=== PATIENT | female | born 1935 | race Caucasian/White ===

== ENCOUNTER 2019-09-30 13:12 | Outpatient (CLI) | payer MEDICARE, SELFPAY ==
--- NOTE | ~2019-09-30 | XR_ITS ---
EXAMINATION: XR hand BI arthritis min 3V EXAM DATE: 09/30/2019 13:55 INDICATION: No known recent injury provided at this time. Pain of the left hand. Osteoarthritis. TECHNIQUE: Right hand frontal, lateral and oblique projections obtained and reviewed. Left hand fron nikkie, lateral and oblique projections obtained and reviewed. Catchers projection of both hands. There is no prior study for comparison. FINDINGS: Right hand: There is polyarticular primary osteoarthritis as follows: Severe first CMC, MCP, second a nd third DIP joints, otherwise mild to moderate interphalangeal. There are no bony erosions identifie d. There are no acute fractures or dislocations identified. There is no subcutaneous gas. The so ft tissue is unremarkable. There are no radiopaque foreign bodies. Left hand: There is polyarticular primary osteoarthritis as follows: Severe second and third DIP, mod erate fourth and fifth DIP, moderate first CMC, otherwise mild to moderate polyarticular interphalang eal. There are no bony erosions identified. There are no acute fractures or dislocations identified. There is no subcutaneous gas. The soft tissue is unremarkable. There are no radiopaque foreign lisa dies. IMPRESSION: Advanced particular osteoarthritis as above. Reviewed, dictated and finalized at location A. 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
--- NOTE | ~2019-09-30 | XR_ITS ---
EXAMINATION: XR foot LT standing 2V EXAM DATE: 09/30/2019 13:55 INDICATION: No known recent injury provided at this time. Pain of the left foot. TECHNIQUE: Frontal and lateral projections of the left foot. Images obtained standing. There is no prior study for comparison. Correlation was made with contralateral foot same date. FINDINGS: There is minimal polyarticular left foot primary osteoarthritis. There are no acute fractur es or dislocations identified. There is no subcutaneous gas. The soft tissue is unremarkable. The re are no radiopaque foreign bodies. There are no bony erosions identified. IMPRESSION: Minimal polyarticular left foot osteoarthritis. Reviewed, dictated and finalized at location A. D WASTE ENGINEER
--- NOTE | ~2019-09-30 | XR_ITS ---
EXAMINATION: XR foot RT standing 2V EXAM DATE: 09/30/2019 13:55 INDICATION: No known recent injury provided at this time. Pain of the right foot. Osteoarthritis. TECHNIQUE: Frontal and lateral projections of the right foot. Images obtained standing. There are n o prior studies for comparison. FINDINGS: There are no acute right foot fractures or dislocations identified. There is no subcutaneo us gas. The soft tissue is unremarkable. There are no radiopaque foreign bodies. There are no bon y erosions identified. There is minimal polyarticular primary osteoarthritis. IMPRESSION: Minimal polyarticular right foot osteoarthritis. Reviewed, dictated and finalized at location A. [employer]
[2019-09-30 16:07] LABS: Vitamin D 25 Hydroxy 76.4 ng/mL
[2019-10-03 11:11] LABS: Anti Cyclic Citrullinated Pept <16 Units (<20)
[2019-10-04 21:06] LABS: Anti Nuclear Antibody Pattern Nuclear, Speckled
== END 2019-09-30 13:13 | disposition home or self-care (01) ==
PROVIDERS: PCP Internal Medicine; Visit Provider Internal Medicine
DX: M80.08XA Age-related osteoporosis with current pathological fracture, vertebra(e), initial encounter for fracture (principal); M19.072 Primary osteoarthritis, left ankle and foot; M19.071 Primary osteoarthritis, right ankle and foot; M19.042 Primary osteoarthritis, left hand; M19.041 Primary osteoarthritis, right hand
CPT/HCPCS: 36415; 73130; 73620; 82306; 86038; 86039; 86200

== ENCOUNTER 2019-10-19 10:30 | Emergency (ER) | payer MEDICARE, SELFPAY ==
--- NOTE | ~2019-10-19 | XR_ITS ---
XR lumbar spine 2-3V DATE: 10/19/2019 12:32 INDICATION: Low back pain for 4 days, worsening. No recent trauma. History of prior spine fractures. TECHNIQUE: AP, lateral, coned lateral lumbosacral views COMPARISON: 04/24/2019 CT lumbar spine FINDINGS: Diffuse osteopenia There are numerous compression fracture deformities of the thoracic and lumbar spine, including T6, T 7, T8, T11, T12 and all 5 lumbar vertebral bodies. There is vertebroplasty at T6, T7, T8, T11 and L5. The compression fracture deformities of the lumbar spine appears stable since 04/24/2019 CT lumbar spi ne examination. The lumbar pedicles and included lower thoracic pedicles appear intact. No apparent bone destruction is noted. The sacrum joints are normal. Surgical clips overlie the right upper and right lower quadrants. There is extensive calcification of the abdominal aorta, iliac and femoral arteries. IMPRESSION: Multiple compression fracture 4 views of the thoracic and lumbar spine; lumbar compressio n fractures appear stable since 04/24/2019 Status post vertebroplasty at multiple thoracic vertebral bodies and at L5 Reviewed, dictated and finalized at location B. IMPRESSION: Multiple compression fracture 4 views of the thoracic and lumbar sp ine; lumbar compression fractures appear stable since 04/24/2019 Status post vertebroplasty at multiple thoracic vertebral bodies and at L5
[2019-10-19 12:02] VITALS: BP 136/55; PULSE 84; RESP 18; TEMP 36.8; O2SAT 96
--- NOTE | 2019-10-19 12:11 | ED.GENADULT ---
HPI - General Adult General Chief complaint: Back Pain/Injury Stated complaint: lower back pain Source: patient Mode of arrival: ambulatory Limitations: no limitations History of Present Illness HPI narrative: Patient is an 84-year-old female who presents complaining of lower back pain x3 to 4 days. Patient reports stepping on a rock and twisting 4 days ago, patient also reports coughing and lifting in the basement 2 days ago and pain increased. She reports pain is /. She reports taking [place] without relief. Patient has significant history of fracture vertebrae's and fusion, most recent 05/30. Patient's PCP is Dr. Zuniga, patient sees Dr. Burk pain management. She denies all urinary complaints. MD complaint: back pain Related Data Home Medications Medication Instructions Recorded Confirmed aspirin 81 mg tablet,delayed 81 mg PO DAILY 06/25/19 08/20/19 release wvhhgewg-kcbxfmj-mklu-lutein mcg PO 06/25/19 tramadol 50 mg tablet 50 mg PO BID PRN tablet 06/25/19 Allergies Allergy/AdvReac Type Severity Reaction Status Date / Time amoxicillin Allergy Unknown yeast Verified 09/28/19 12:55 infection Penicillins Allergy Unknown yeast Verified 09/28/19 12:55 infection Sulfa (Sulfonamide Allergy Unknown rash Verified 09/28/19 12:55 Antibiotics) sulfanilamide Allergy Unknown unknown Verified 09/28/19 12:55 codeine AdvReac Unknown Insomnia Verified 09/28/19 12:55 Review of Systems Review of Systems: Narrative: CONSTITUTIONAL: Denies fever, chills, or sweats. EYES: Denies visual changes, redness, or discharge. ENT: Denies rhinorrhea, congestion, sore throat, or otalgia. CARDIOVASCULAR: Denies chest pain, palpitations, or edema. RESPIRATORY: Denies cough or dyspnea. GASTROINTESTINAL: Denies abdominal pain, nausea, vomiting, or diarrhea. GENITOURINARY: Denies dysuria or hematuria. SKIN: Denies rash or itching. MUSCULOSKELETAL: Reports lower back pain. NEUROLOGIC: Denies headache, numbness, dizziness, or weakness. PSYCHIATRIC: Denies anxiety or depression. [facility] Past Medical History Medical History Anemia Atrial fibrillation CKD (chronic kidney disease) stage 3, GFR 30-59 ml/min COPD (chronic obstructive pulmonary disease) Fracture of vertebra due to osteoporosis Generalized osteoarthritis of multiple sites Hyperlipidemia Hypertension Inflammatory arthritis Insomnia Nicotine addiction Osteoporosis Other intervertebral disc degeneration, lumbar region Rheumatoid arthritis Thyroid nodule Vitamin D deficiency Surgical History Surgical History H/O cataract extraction History of appendectomy History of cholecystectomy Family History Family History Father Family history of lymphoma Family history of malignant neoplasm of bone Mother Family history of coronary artery disease Family history of congestive heart failure Sibling Diabetes mellitus Other Carcinoma of colon Social History Social History Smoking status: Current every day smoker Second hand tobacco smoke exposure: Yes Smoking end date: 09/12/15 Alcohol intake: current Gender identity (if verbalized by the patient): Female Exam Narrative: Exam Narrative: GENERAL: Well-appearing, well-nourished, and in no acute distress. HEAD: Normocephalic, atraumatic. EYES: EOMI. No redness or drainage. Conjunctiva are normal. ENT: Mucous membranes pink and moist. CHEST: No respiratory distress. Clear to auscultation. HEART: Regular rate and rhythm. No murmur appreciated. Normal peripheral pulses. MUSCULOSKELETAL: Left lumbar paraspinal tenderness with palpation EXTREMITIES: Normal range of motion. No edema. SKIN: Warm, dry, no rash. NEURO: No focal deficits. Alert and oriented x3. Gait steady. PSYCH
== END 2019-10-19 13:05 | disposition home or self-care (01) ==
PROVIDERS: Emergency Provider Nurse Practitioner; PCP Family Medicine
DX: M54.5 Low back pain (principal); F17.200 Nicotine dependence, unspecified, uncomplicated; I48.91 Unspecified atrial fibrillation; I12.9 Hypertensive chronic kidney disease with stage 1 through stage 4 chronic kidney disease, or unspecified chronic kidney disease; N18.3 Chronic kidney disease, stage 3 (moderate); J44.9 Chronic obstructive pulmonary disease, unspecified; M19.90 Unspecified osteoarthritis, unspecified site; E78.5 Hyperlipidemia, unspecified; M81.0 Age-related osteoporosis without current pathological fracture; M06.9 Rheumatoid arthritis, unspecified; Z98.49 Cataract extraction status, unspecified eye
CPT/HCPCS: 72100; 99213; G0463

== ENCOUNTER 2019-10-21 10:19 | Outpatient (CLI) | payer MEDICARE, SELFPAY ==
--- NOTE | ~2019-10-21 | MR_ITS ---
EXAMINATION: MR lumbar spine wo con EXAM DATE: 10/21/2019 11:26 INDICATION: Low back pain. TECHNIQUE: Multi-sequential, multiplanar MR images of the lumbar spine were obtained without contrast . Sagittal T1, T2, T2 fat saturation images. Axial T2 weighted images. Correlation is made to x-ray from 10/20/2019. FINDINGS: There is L4 mild to moderate compression fracture at the superior endplate with mild edema, could be subacute. Mild chronic loss of the L1-L3 vertebral body heights. There is moderate chronic L5 compression fracture, and moderate to severe chronic T11 compression fracture both of which have b een treated with methylmethacrylate. There is 4 mm anterolisthesis L5 on S1. The vertebral bodies are otherwise aligned. The conus medullaris terminates at the L1/2 level and has normal signal intensity and morphology. Renal lesions, imaged portions consistent with cysts. Level by level evaluation: T12-L1: Disc does not extend beyond the endplate margin. Facet arthropathy: None. Neural foraminal stenosis: No stenosis. Central canal stenosis: No stenosis. L1-L2: There is a mild diffuse disc bulge. Facet arthropathy: Mild. Neural foraminal stenosis: No stenosis. Central canal stenosis: No stenosis. L2-L3: There is a moderate diffuse disc bulge. Facet arthropathy: Mild to moderate. Neural foraminal stenosis: Mild right. Central canal stenosis: Mild to moderate. L3-L4: There is a mild diffuse disc bulge. Facet arthropathy: Mild. Neural foraminal stenosis: No stenosis. Central canal stenosis: Mild. L4-L5: There is a mild diffuse disc bulge. Facet arthropathy: Mild to moderate. Neural foraminal stenosis: Mild bilateral. Central canal stenosis: Mild. L5-S1: There is a mild to moderate diffuse disc bulge. Facet arthropathy: Moderate to severe. Neural foraminal stenosis: Mild to moderate bilateral. Central canal stenosis: Mild. IMPRESSION: 1. L4 mild to moderate compression fracture with some edema, could be subacute. 2. L5-S1 advanced facet arthropathy. 3. Otherwise chronic compression fractures and mild to moderate spondylosis. Reviewed, dictated and finalized at location B. IMPRESSION: 1. L4 mild to moderate compression fracture with some edema, could be subacute . 2. L5-S1 advanced facet arthropathy. 3. Otherwise chronic compression fractures and mild to moderate spondylosis.
== END 2019-10-21 10:20 | disposition home or self-care (01) ==
PROVIDERS: PCP Family Medicine; Visit Provider Nurse Practitioner
DX: M47.896 Other spondylosis, lumbar region (principal)
CPT/HCPCS: 72148

== ENCOUNTER 2019-11-28 15:06 | Emergency (ER) | payer MEDICARE, SELFPAY ==
--- NOTE | ~2019-11-28 | XR_ITS ---
EXAMINATION: XR wrist RT min 3V DATE: 11/28/2019 15:30 INDICATION: Generalized right wrist pain and bruising post fall one day prior TECHNIQUE: Posteroanterior, ulnar deviation, oblique, and lateral views of the right wrist were obtai mariel. COMPARISON: 09/30/2019 FINDINGS: Mild palmar impaction of a minimally displaced intra-articular fracture of the distal right radius. T here is 1 mm step-off along the articular surface. No other fractures identified. Polyarticular osteo arthritis, severe at the distal radioulnar, first carpal metacarpal joints and second and third dista l interphalangeal joints and mild to moderate at multiple metacarpophalangeal and additional interpha langeal joints. Prominent soft tissue swelling about the right wrist. IMPRESSION: 1. Mildly displaced intra-articular fracture of the distal left radius. 2. Moderate to severe polyarticular osteoarthritis at the left hand and wrist. Reviewed, dictated and finalized at location A.
[2019-11-28 15:08] VITALS: BP 124/66; PULSE 90; RESP 20; TEMP 36.5; O2SAT 97
--- NOTE | 2019-11-28 15:32 | ED.UPPEXIN ---
HPI - Extremity Injury (Upper) General Chief Complaint: Extremity Injury, Upper Stated Complaint: R arm pain/deformity Time Seen by Provider: 11/28/19 15:23 History of Present Illness HPI narrative: Patient presents with her rjpmbzuu-xq-lfi for sore right wrist. She fell over a stepstool on the side of her bed yesterday. She did not lose consciousness, and complains of mild right upper leg pain,also. He has a history of osteoporosis and recently had to thoracic lumbar compression fractures repaired. She says she quit smoking recently, and took Naprosyn and Tylenol for the wrist pain. She is able to use her right hand but resists any motion of the wrist. There is significant bruising and some swelling there. MD complaint: injury to: right and wrist Onset (ago): day(s) Other Extremity Injury: Right: wrist Handedness: right Place: home Severity: moderate Relieving factors: immobilization Exacerbating factors: movement of extremity Context: fall Treatments prior to arrival: NSAIDS and other (sling) Related Data Home Medications Medication Instructions Recorded Confirmed aspirin 81 mg tablet,delayed 81 mg PO DAILY 06/25/19 10/21/19 release nlwehges-bwsxvhc-vhaz-lutein 1 mcg PO 06/25/19 10/21/19 albuterol sulfate 2.5 mg INHALATION Q4-6H PRN 10/21/19 10/21/19 diltiazem HCl 300 mg 300 mg PO DAILY 10/21/19 10/21/19 capsule,extended release 24 hr naproxen 500 mg tablet 500 mg PO BID 10/21/19 10/21/19 Allergies Allergy/AdvReac Type Severity Reaction Status Date / Time amoxicillin Allergy Unknown yeast Verified 11/16/19 15:30 infection Penicillins Allergy Unknown yeast Verified 11/16/19 15:30 infection Sulfa (Sulfonamide Allergy Unknown rash Verified 11/16/19 15:30 Antibiotics) sulfanilamide Allergy Unknown unknown Verified 11/16/19 15:30 codeine AdvReac Unknown Insomnia Verified 11/16/19 15:30 Review of Systems Review of Systems: Narrative: CONSTITUTIONAL: Denies fever, chills, or sweats. EYES: Denies visual changes, redness, or discharge. ENT: Denies rhinorrhea, congestion, sore throat, or otalgia. CARDIOVASCULAR: Denies chest pain, palpitations, or edema. RESPIRATORY: Denies cough or dyspnea. GASTROINTESTINAL: Denies abdominal pain, nausea, vomiting, or diarrhea. GENITOURINARY: Denies dysuria or hematuria. SKIN: Denies rash or itching. MUSCULOSKELETAL: Denies back pain NEUROLOGIC: Denies headache, numbness, or weakness.She can walk with her walker. PSYCHIATRIC: Denies anxiety or depression. PMFSH Past Medical History Medical History Anemia Atrial fibrillation CKD (chronic kidney disease) stage 3, GFR 30-59 ml/min COPD (chronic obstructive pulmonary disease) Fracture of vertebra due to osteoporosis Generalized osteoarthritis of multiple sites Hyperlipidemia Hypertension Inflammatory arthritis Insomnia Nicotine addiction Osteoporosis Other intervertebral disc degeneration, lumbar region Rheumatoid arthritis Thyroid nodule Vitamin D deficiency Surgical History Surgical History H/O cataract extraction History of appendectomy History of cholecystectomy Family History Family History Father Family history of lymphoma Family history of malignant neoplasm of bone Mother Family history of coronary artery disease Family history of congestive heart failure Sibling Diabetes mellitus Other Carcinoma of colon Social History Social History Smoking status: Current every day smoker Second hand tobacco smoke exposure: Yes Smoking end date: 09/12/15 Alcohol intake: current Gender identity (if verbalized by the patient): Female Exam Narrative: Exam Narrative: GENERAL: Well-appearing, well-nourished, and in no acute distress. HEAD: Normocephalic, atraumatic. EYES: PERRLA and
== END 2019-11-28 16:29 | disposition home or self-care (01) ==
PROVIDERS: Emergency Provider Emergency Medicine; PCP Family Medicine
DX: S52.571A Other intraarticular fracture of lower end of right radius, initial encounter for closed fracture (principal); M19.041 Primary osteoarthritis, right hand; M19.031 Primary osteoarthritis, right wrist; W18.09XA Striking against other object with subsequent fall, initial encounter; Z79.82 Long term (current) use of aspirin; Z86.2 Personal history of diseases of the blood and blood-forming organs and certain disorders involving the immune mechanism; I48.91 Unspecified atrial fibrillation; I12.9 Hypertensive chronic kidney disease with stage 1 through stage 4 chronic kidney disease, or unspecified chronic kidney disease; N18.3 Chronic kidney disease, stage 3 (moderate); J44.9 Chronic obstructive pulmonary disease, unspecified; E78.5 Hyperlipidemia, unspecified; M81.0 Age-related osteoporosis without current pathological fracture; M06.9 Rheumatoid arthritis, unspecified; E04.1 Nontoxic single thyroid nodule; E55.9 Vitamin D deficiency, unspecified
CPT/HCPCS: 29125; 73110; 99284; A4565; A9270

== ENCOUNTER 2019-12-04 10:40 | Outpatient (CLI) | payer MEDICARE, SELFPAY ==
--- NOTE | ~2019-12-04 | XR_ITS ---
EXAMINATION: XR hip RT min 2V DATE: 12/04/2019 11:00 INDICATION: Right hip pain TECHNIQUE: Two views of the right hip were obtained. COMPARISON: None. FINDINGS: Bone alignment is normal. There is no fracture. Moderate osteoarthritis is noted. There is vertebroplasty change at L5. Calcified atherosclerosis is noted. IMPRESSION: 1. . No acute osseous abnormality. Reviewed, dictated and finalized at location A.
--- NOTE | ~2019-12-04 | XR_ITS ---
XR lumbar spine 2-3V DATE: 12/04/2019 11:00 INDICATION: Low back pain TECHNIQUE: AP, lateral, coned lateral lumbosacral views COMPARISON: 10/29/2019 lumbar spine FINDINGS: Since 10/28/2021 there is burst fracture deformity of L4 with increased cupping of the super ior vertebral endplate and loss of height of this vertebra. Chronic minimal anterior wedge compression fracture deformity of L1 and L2 is demonstrated to better advantage on 10/29/2019 examination. Again noted is vertebroplasty at L5 and T11. The sacroiliac joints appear normal. Diffuse osteopenia. Status post cholecystectomy. Surgical clips overlie the right lower quadrant. Extensive calcification abdominal aorta and iliac arteries; no apparent abdominal aortic aneurysm. IMPRESSION: L4 burst fracture since 10/29/2019 Reviewed, dictated and finalized at location A.
== END 2019-12-04 10:41 | disposition home or self-care (01) ==
PROVIDERS: PCP Family Medicine; Visit Provider Nurse Practitioner
DX: M25.559 Pain in unspecified hip (principal); S32.041A Stable burst fracture of fourth lumbar vertebra, initial encounter for closed fracture; X58.XXXA Exposure to other specified factors, initial encounter
CPT/HCPCS: 72100; 73502

== ENCOUNTER 2020-01-11 11:12 | Outpatient (CLI) | payer MEDICARE, SELFPAY ==
--- NOTE | ~2020-01-11 | XR_ITS ---
XR lumbar spine 2-3V 01/11/2020 12:10 Indication: Age-related osteoporosis with pathologic fractures. Procedure: 3 views of the lumbar spine Comparison: 12/04/2019 Findings: There are multiple compression deformities which are chronic including T11, L3, L4 and L5. There are vertebroplasty changes associated with compression fractures at 11, T12, L1, L4 and L5. The re is grade 1 spondylolisthesis at L5-S1. There is disc narrowing at L3-4 and L5-S1. Generalized oste openia. There are facet degenerative changes at L5-S1 and to a lesser degree L4-5. Impression: 1: Multiple subacute/chronic compression fractures with vertebroplasty changes including T11, T12, L1 , L4 and L5. Mild chronic superior endplate compression deformity of L3. 2: Moderate lumbar spondylosis. Reviewed, dictated and finalized at location A. Impression: 1: Multiple subacute/chronic compression fractures with vertebroplasty changes including T11, T12, L1, L4 and L5. Mild chronic superior endplate compression d eformity of L3. 2: Moderate lumbar spondylosis.
--- NOTE | ~2020-01-11 | XR_ITS ---
XR thoracic spine 3V 01/11/2020 12:10 Indication: Age-related osteoporosis with pathologic fractures mid-lower back Procedure: 3 views of the lumbar spine Comparison: 07/29/2008 Findings: There are chronic compression fractures of T3, T5, T6, T7, T8, T11, T12 and L1 with vertebr oplasty changes. There is mild scoliosis. Generalized osteopenia. No significant paraspinal soft tiss ue abnormality. Surrounding osseous structures within normal limits. There are cholecystectomy clips. Impression: 1: Multiple chronic thoracic and lumbar compression fractures with vertebroplasty changes. No acute a bnormality identified. 2: Osteopenia. Reviewed, dictated and finalized at location A. Impression: 1: Multiple chronic thoracic and lumbar compression fractures with vertebroplas ty changes. No acute abnormality identified. 2: Osteopenia.
[2020-01-11 11:54] LABS: Hematocrit 44.1 % (37.0-47.0); Hemoglobin 13.9 g/dL (12.0-15.0); Mean Corpuscular HGB Conc 31.5 g/dl (32-36); Mean Corpuscular Volume 85.6 fl (80-100); Mean Platelet Volume 10.6 fl (7.4-10.4); Platelet Count Result 231 k/mm3 (150-375); Red Blood Count 5.15 M/mm3 (4.2-5.4); Red Cell Distribution Width 14.7 % (11.5-14.5); White Blood Count 10.4 K/mm3 (4.5-10.0)
[2020-01-11 12:13] LABS: Alanine Aminotransferase 18 U/L (4-35); Albumin Level 4.3 g/dL (3.5-5.1); Alkaline Phosphatase 94 U/L (38-126); Aspartate Amino Transferase 24 U/L (14-36); Bilirubin,Total 0.3 mg/dL (0.2-1.3); Blood Urea Nitrogen 21 mg/dL (7-17); Calcium 9.5 mg/dL (8.4-10.2); Carbon Dioxide 32 mmol/L (22-30); Chloride 99 mmol/L (98-107); Cholesterol 125 mg/dL (0-200); Estimated Glomerular Filt Rate 43; Glucose 92 mg/dL (65-105); HDL Direct 30 mg/dL; Potassium 4.4 mmol/L (3.4-5.0); Sodium 138 mmol/L (137-145); Triglycerides 195 mg/dL (<150)
[2020-01-11 12:24] LABS: LDL Cholesterol Direct 62 mg/dL
[2020-01-11 13:08] LABS: Hemoglobin A1C 5.5 % (<5.7)
[2020-01-14 11:35] LABS: Vitamin D 1,25 (OH)2 Total 33 pg/mL (18-72); Vitamin D2 1,25 (OH)2 <8 pg/mL; Vitamin D3 1,25 (OH)2 33 pg/mL
== END 2020-01-11 11:13 | disposition home or self-care (01) ==
PROVIDERS: PCP Family Medicine; Visit Provider Nurse Practitioner Family
DX: I10 Essential (primary) hypertension (principal); E55.9 Vitamin D deficiency, unspecified; R73.01 Impaired fasting glucose; E78.5 Hyperlipidemia, unspecified; M80.08XA Age-related osteoporosis with current pathological fracture, vertebra(e), initial encounter for fracture; J84.9 Interstitial pulmonary disease, unspecified; M85.88 Other specified disorders of bone density and structure, other site; M47.896 Other spondylosis, lumbar region
CPT/HCPCS: 36415; 72072; 72100; 80053; 80061; 82652; 83036; 85027

== ENCOUNTER 2020-06-14 09:26 | Outpatient (CLI) | payer MEDICARE, SELFPAY ==
--- NOTE | ~2020-06-14 | MR_ITS ---
EXAMINATION: MR lumbar spine wo con DATE: 06/14/2020 10:39 INDICATION: Low back pain. Osteoarthritis. TECHNIQUE: Magnetic resonance imaging (MRI) of the lumbar spine was performed without intravenous con trast. Sequences included sagittal T2-weighted FSE, sagittal T2-weighted FS FSE, sagittal T1-weighted FSE, and axial T2-weighted FSE. COMPARISON: Lumbar spine MRI 10/21/2019 FINDINGS: There are cysts in the kidneys measuring up to at least 5.5 cm on the left. S1 is a transit ional segment. There are chronic compression fractures and burst fractures at many levels. There are changes of vertebroplasty at all levels from T11 to L5. There is 3 mm retropulsion of bone into centr al spinal canal at T11, T12, and L4. The intervertebral disc heights are normal. The distal spinal co rd signal intensity is normal. The conus medullaris is at L2. The following disc levels are specifica lly discussed: T11-T12: The disc is bulging. There is moderate bilateral facet joint osteoarthritis. There is mild b ilateral neural foraminal stenosis. There is mild central canal stenosis. T12-L1: The disc does not extend beyond the endplate margin. There is moderate bilateral facet joint osteoarthritis. There is no neural foraminal stenosis. There is no central canal stenosis. L1-L2: The disc is bulging. There is mild bilateral facet joint osteoarthritis. There is no neural fo raminal stenosis. There is mild central canal stenosis. L2-L3: The disc is bulging and has an annular fissure. There is mild bilateral facet joint osteoarthr itis. There is mild bilateral neural foraminal stenosis. There is mild central canal stenosis. L3-L4: The disc is bulging. There is moderate right and mild left facet joint osteoarthritis. There i s mild neural foraminal stenosis. There is mild central canal stenosis. L4-L5: The disc is bulging. There is moderate bilateral facet joint osteoarthritis. There is hypertro phy of the ligamentum flavum. There is mild bilateral neural foraminal stenosis. There is mild centra l canal stenosis. L5-S1: The disc does not extend beyond the endplate margin. There is severe bilateral facet joint ost eoarthritis. There is mild bilateral neural foraminal stenosis. There is no central canal stenosis. IMPRESSION: 1. Mild lumbar spondylosis, stable from 10/21/2019. Reviewed, dictated and finalized at location A. E PATHOLOGIST
== END 2020-06-14 09:27 | disposition home or self-care (01) ==
DX: M19.90 Unspecified osteoarthritis, unspecified site (principal); M48.061 Spinal stenosis, lumbar region without neurogenic claudication; M47.816 Spondylosis without myelopathy or radiculopathy, lumbar region
CPT/HCPCS: 72148

== ENCOUNTER 2020-07-09 10:38 | Outpatient (CLI) | payer MEDICARE, SELFPAY ==
--- NOTE | ~2020-07-09 | XR_ITS ---
XR chest 2V DATE: 07/09/2020 11:22 INDICATION: Panlobular emphysema TECHNIQUE: PA and lateral chest COMPARISON: 08/20/2021 view chest FINDINGS: There is interval vertebroplasty at multiple thoracic and lumbar vertebral bodies since 08/12. There is prominent diffuse osteopenia. There are multiple compression fracture deformities of the thoracic and lumbar spine. Borderline heart size. Aortic calcification. No pulmonary infiltrate or consolidation is evident. No pleural effusion or pulmonary vascular conges tion or pneumothorax. Surgical clips, right upper quadrant, likely due to cholecystectomy. IMPRESSION: Interval vertebroplasty at multiple thoracic and lumbar levels Diffuse osteopenia, multiple compression fracture deformities of the thoracic and lumbar spine Borderline heart size, aortic atherosclerosis No active pulmonary disease or other significant change since 08/30/2019 Reviewed, dictated and finalized at location A. ER SALVAGER IMPRESSION: Interval vertebroplasty at multiple thoracic and lumbar levels Diffuse osteopenia, multiple compression fracture deformities of the thoracic a nd lumbar spine Borderline heart size, aortic atherosclerosis No active pulmonary disease or other significant change since 08/30/2019
[2020-07-09 11:31] LABS: Basophils Absolute Auto 0.1 K/mm3 (0.0-0.1); Basophils Percent Auto 0.5 % (0.2-1.2); Eosinophils Absolute Auto 0.4 K/mm3 (0-0.3); Eosinophils Percent Auto 3.8 % (0-4.4); Hematocrit 42.4 % (37.0-47.0); Hemoglobin 14.3 g/dL (12.0-15.0); Immature Granulocyte Absolute 0.05 K/mm3 (0.00-0.031); Immature Granulocyte Percent A 0.5 % (0-0.5); Lymphocytes Absolute Auto 2.73 K/mm3 (0.9-3.2); Mean Corpuscular HGB Conc 33.7 g/dl (32-36); Mean Corpuscular Hemoglobin 28.1 pg (26-34); Mean Corpuscular Volume 83.3 fl (80-100); Mean Platelet Volume 9.8 fl (7.4-10.4); Monocytes Absolute Auto 1.6 K/mm3 (0.1-0.6); Monocytes Percent Auto 14.8 % (2.6-8.5); Neutrophils Absolute Auto 6.1 K/mm3 (1.3-6.7); Neutrophils Percent Auto 55.4 % (45.5-73.1); Platelet Count Result 243 k/mm3 (150-375); Red Blood Count 5.09 M/mm3 (4.2-5.4); Red Cell Distribution Width 14.9 % (11.5-14.5); White Blood Count 10.9 K/mm3 (4.5-10.0)
[2020-07-09 11:45] LABS: Alanine Aminotransferase 16 U/L (4-35); Alkaline Phosphatase 70 U/L (38-126); Anion Gap 9 mmol/L (8-16); Aspartate Amino Transferase 23 U/L (14-36); Bilirubin,Total 0.4 mg/dL (0.2-1.3); Blood Urea Nitrogen 12 mg/dL (7-17); Calcium 9.2 mg/dL (8.4-10.2); Carbon Dioxide 26 mmol/L (22-30); Chloride 106 mmol/L (98-107); Cholesterol 136 mg/dL (0-200); Estimated Glomerular Filt Rate 60; Glucose 101 mg/dL (65-105); HDL Direct 33 mg/dL; Potassium 3.8 mmol/L (3.4-5.0); Sodium 141 mmol/L (137-145); Triglycerides 223 mg/dL (<150)
[2020-07-09 11:56] LABS: LDL Cholesterol Direct 63 mg/dL
[2020-07-12 06:22] LABS: Vitamin D 1,25 (OH)2 Total 32 pg/mL (18-72); Vitamin D2 1,25 (OH)2 <8 pg/mL; Vitamin D3 1,25 (OH)2 32 pg/mL
== END 2020-07-09 10:39 | disposition home or self-care (01) ==
DX: M48.55XA Collapsed vertebra, not elsewhere classified, thoracolumbar region, initial encounter for fracture (principal); J43.1 Panlobular emphysema; I10 Essential (primary) hypertension; E55.9 Vitamin D deficiency, unspecified; M47.815 Spondylosis without myelopathy or radiculopathy, thoracolumbar region; I70.0 Atherosclerosis of aorta
CPT/HCPCS: 36415; 71046; 80053; 80061; 82652; 85025

== ENCOUNTER 2020-07-26 08:56 | Outpatient (CLI) | payer MEDICARE, SELFPAY ==
--- NOTE | 2020-08-04 12:48 | WPDPFTINT ---
PFT Interpretation PFT Interpretation: DOS: REQUESTING: Don Sharif MD REASON FOR TESTING: COPD] PULMONARY FUNCTION TESTS Results are reproducible. Spirometry: Mild decreased in FEV1, 0.91 L. FVC is mildly reduced. Normal FEV1% indicating no obvious airflow obstruction. FEF 25-75 is 49% reduced and suggestive of small airways pattern. There is no change with bronchodilator. Lung volumes: TLC is 90% normal. RV is 127% consistent with air trapping. RV/TLC is increased at 62 suggestive of significant air trapping. Airway resistance elevated at 250%. Diffusion: DLCO is 47%, moderately decreased. Flow volume loop: Mild scooping of the expiratory limb IMPRESSION: Mild ventilatory impairment with FEV1 0.91 L, small airways pattern; moderate air trapping and moderate diffusion impairment. obstructive pattern is is inferred by the moderate air trapping and increased airway resistance. Lack of response to bronchodilator does not preclude use if clinically indicated. Nitza Groves MD
--- NOTE | 2020-08-04 12:56 | WPDSIXMINUTE ---
Six Minute Walk Six Minute Walk: DOS: 07/26/2020 REQUESTING: Don Salas MD REASON FOR TESTING: COPD SIX MINUTES WALK This test was conducted per ATS guidelines. The patient walked while breathing room air. Initial saturation 93%. Initial pulse was 103. The patient walked for 6 minutes without stopping. Distance walked was 700 ft/ 213 m. PF lowest saturation was transiently 88%. Maximum heart rate 115. IMPRESSION: This study showed transient desaturation 88% which did not require supplemental oxygen. Recovery saturation was 94%. Distance walked is adequate for age. Patient had resting tachycardia at 103 at the beginning of the test and was sustained throughout testing and recovery.
== END 2020-07-26 08:57 | disposition home or self-care (01) ==
PROVIDERS: Visit Provider Internal Medicine Critical Care Medicine
DX: J44.9 Chronic obstructive pulmonary disease, unspecified (principal)
CPT/HCPCS: 94060; 94618; 94726; 94729

== ENCOUNTER 2020-08-22 00:47 | Outpatient (CLI) | payer MEDICARE, SELFPAY ==
[2020-08-22 19:06] LABS: SARS-CoV-2 RNA PCR Negative
== END 2020-08-22 00:48 | disposition home or self-care (01) ==
LOC: ANHCOVIDDT 00:48
PROVIDERS: Visit Provider Internal Medicine Critical Care Medicine
DX: Z01.812 Encounter for preprocedural laboratory examination (principal); Z20.822 Contact with and (suspected) exposure to COVID-19
CPT/HCPCS: C9803; U0003

== ENCOUNTER 2020-08-24 08:45 | Outpatient (CLI) | payer MEDICARE, SELFPAY ==
--- NOTE | 2020-09-30 12:40 | WPDSLEEPSTUD ---
Sleep Study Date of Study: 08/24/20 Ordering Provider: Nitza Groves MD Interpreting Physician: Nitza Groves MD Sleep Study Type: CPAP Titration Height: 1.47 m Weight: 63.503 kg Body Mass Index: 29.2 Neck Circumference: 35.56 cm [place]: 5 Reason for Sleep Study VIVIANE on a prior split night study February 10, 2016 showing AHI of 7.9 with desaturation to 78% with an optimal pressure 7 cm; now she is having a poor response to CPAP, in bed 10 hours a night, daily naps despite good compliance with an AHI of 0.2 on 8 cm of water pressure; trial of 9 cm on her own CPAP without improvement in symptoms Sleep History Geno Castillo is an 85 year old female with VIVIANE diagnosed in 2016 who is complaint with CPAP. She has had worsening quality of sleep despite excellent compliance with treatment. She is wearing CPAP at 8 cm with an AHI of 0.2 average usage 10 hours 48 minutes. She wakes during the night, still leaves CPAP on while she is resting in bed. She does not know if she snores or not. She does not awaken at night with heartburn, belching or coughing. She occasionally has trouble sleeping with a cold. She rarely wakes up gasping for breath at night. She frequently has breathing problems at night reported to her by others. She rarely sweats excessively at night. She does not notice her heart pounding or beating irregularly night. She frequently falls asleep during the day, never while driving and not involuntarily. She does not fall asleep while exerting physical effort. She does not have loss of muscle tone with strong emotion. She does not have daytime difficulties due to excessive sleepiness, she is retired. She does not feel paralyzed on waking or falling asleep. She rarely has vivid dreamlike scenes upon awakening or falling asleep. She has never free to go to sleep. She rarely has nightmares. She rarely remembers her dreams. She really has racing thoughts. She never feels sad depressed or anxious. She frequently has muscular tension. She does not notice parts of her body jerking, does not kick at night, does not have crawling and aching feelings in her legs and does not have any kind of leg pain at night. She does not have morning jaw pain. She does not grind her teeth during sleep. She frequently has bothered by pain in her arms and back during the day. She rarely is awakened by pain at night. She does not wake up feeling stiff in the morning. She rarely wakes up with sore achy muscles. She occasionally wakes up with pain in the spine. She has fatigue and takes sedatives. Normal bedtime is midnight falling asleep within 10-15 minutes, waking up 1-2 times during the night to urinate and sometimes take a Tylenol. She wakes in the morning at 8:00 a.m.. She estimates 8 hours of sleep at night. She sometimes takes naps. A short nap can be refreshing. She is usually drowsy in the morning for 2 hours. She feels better in the afternoon or evening compared to the morning. Habits: Tobacco 1 pack a day. Caffeine 2 cokes per day. No alcohol or recreational drugs. [facility] Past Medical History Medical History (Updated 09/30/20 @ 14:08 by Nitza Groves MD) Anemia Atrial fibrillation Breast cancer Right breast, surgery 2005, radiation with radiation fibrosis CKD (chronic kidney disease) stage 3, GFR 30-59 ml/min COPD (chronic obstructive pulmonary disease) Fracture of vertebra due to osteoporosis Generalized osteoarthritis of multiple sites Hyperlipidemia Hypertension Inflammatory arthritis Insomnia Nicotine addiction VIVIANE (obstructive sleep apnea) Osteoporosis Other intervertebral disc degeneration, lumbar region Pain of ulnar side of wrist Rheumatoid arthritis Thyroid nodule Vitamin D deficiency Surgical History Surgical History H/O breast surgery H/O cataract extraction History of appendectomy History of cholecystectomy Family History Family History (Reviewed
[2020-09-30 14:11] VITALS: BMI 29.2
== END 2020-08-24 08:46 | disposition home or self-care (01) ==
LOC: ANHCSM 08:46
PROVIDERS: Visit Provider Internal Medicine Critical Care Medicine
DX: G47.00 Insomnia, unspecified (principal); J84.9 Interstitial pulmonary disease, unspecified; G47.33 Obstructive sleep apnea (adult) (pediatric); R09.02 Hypoxemia
CPT/HCPCS: 95811

== ENCOUNTER 2020-12-02 08:34 | Outpatient (CLI) | payer MEDICARE, SELFPAY ==
--- NOTE | ~2020-12-02 | MR_ITS ---
EXAMINATION: MR lumbar spine wo con DATE: 12/02/2020 09:19 INDICATION: Multilevel neural foraminal stenosis. Low back pain. TECHNIQUE: Magnetic resonance imaging (MRI) of the lumbar spine was performed without intravenous con trast. Sequences included sagittal T2-weighted FSE, sagittal T2-weighted FS FSE, sagittal T1-weighted FSE, and axial T2-weighted FSE. COMPARISON: Lumbar spine MRI 06/14/2020 FINDINGS: There are cysts in the kidneys measuring up to 6.8 cm on the left. S1 is a transitional segment. There are chronic compression fractures and burst fractures at many levels. The re are changes of vertebroplasty at all levels from T11 to L5. There is 3 mm retropulsion of bone int o central spinal canal at T11, T12, and L4. The intervertebral disc heights are normal. The distal sp inal cord signal intensity is normal. The conus medullaris is at L2. The following disc levels are sp ecifically discussed: T11-T12: The disc is bulging. There is moderate bilateral facet joint osteoarthritis. There is mild b ilateral neural foraminal stenosis. There is mild central canal stenosis. T12-L1: The disc does not extend beyond the endplate margin. There is moderate bilateral facet joint osteoarthritis. There is no neural foraminal stenosis. There is no central canal stenosis. L1-L2: The disc is bulging. There is mild bilateral facet joint osteoarthritis. There is no neural fo raminal stenosis. There is mild central canal stenosis. L2-L3: The disc is bulging and has an annular fissure. There is mild bilateral facet joint osteoarthritis. There is mild bilateral neural foraminal stenosis. There is mild central canal stenos is. L3-L4: The disc is bulging. There is moderate right and mild left facet joint osteoarthritis. There i s mild neural foraminal stenosis. There is mild central canal stenosis. L4-L5: The disc is bulging. There is moderate bilateral facet joint osteoarthritis. There is hypertro phy of the ligamentum flavum. There is mild bilateral neural foraminal stenosis. There is mild centra l canal stenosis. L5-S1: The disc does not extend beyond the endplate margin. There is severe bilateral facet joint ost eoarthritis. There is mild bilateral neural foraminal stenosis. There is no central canal stenosis. IMPRESSION: 1. Mild lumbar spondylosis, stable from 06/14/20. Reviewed, dictated and finalized at location B.
== END 2020-12-02 08:35 | disposition home or self-care (01) ==
DX: M48.00 Spinal stenosis, site unspecified (principal); M54.5 Low back pain; G89.29 Other chronic pain; M47.816 Spondylosis without myelopathy or radiculopathy, lumbar region
CPT/HCPCS: 72148

== ENCOUNTER 2020-12-23 12:40 | Outpatient (CLI) | payer MEDICARE, SELFPAY ==
--- NOTE | ~2020-12-23 | XR_ITS ---
XR chest 2V DATE: 12/23/2020 13:13 INDICATION: Pneumonia, emphysema TECHNIQUE: PA and lateral views COMPARISON: 07/01/2020 PA and lateral chest FINDINGS: Borderline heart size. There is aortic calcification. No pulmonary infiltrate or consolid ation, pulmonary vascular congestion or pleural effusion or pneumothorax. Diffuse osteopenia. Multiple stable compression fracture deformities and vertebroplasties of thoraci c and lumbar spine. Status post cholecystectomy. IMPRESSION: No active disease or significant change since 07/01/2020 Reviewed, dictated and finalized at location A.
== END 2020-12-23 12:41 | disposition home or self-care (01) ==
DX: J43.1 Panlobular emphysema (principal); J18.9 Pneumonia, unspecified organism
CPT/HCPCS: 71046

== ENCOUNTER 2021-06-22 10:27 | Outpatient (CLI) | payer MEDICARE, SELFPAY ==
[2021-06-22 10:52] LABS: Basophils Absolute Auto 0.1 K/mm3 (0.0-0.1); Basophils Percent Auto 0.7 % (0.2-1.2); Eosinophils Absolute Auto 0.3 K/mm3 (0-0.3); Eosinophils Percent Auto 4.3 % (0-4.4); Hematocrit 42.4 % (37.0-47.0); Hemoglobin 13.8 g/dL (12.0-15.0); Immature Granulocyte Absolute 0.02 K/mm3 (0.00-0.031); Immature Granulocyte Percent A 0.3 % (0-0.5); Lymphocytes Absolute Auto 1.62 K/mm3 (0.9-3.2); Lymphocytes Percent Auto 23.2 % (18.3-44.2); Mean Corpuscular HGB Conc 32.5 g/dl (32-36); Mean Corpuscular Hemoglobin 27.9 pg (26-34); Mean Corpuscular Volume 85.8 fl (80-100); Monocytes Absolute Auto 1.3 K/mm3 (0.1-0.6); Monocytes Percent Auto 18.8 % (2.6-8.5); Neutrophils Absolute Auto 3.7 K/mm3 (1.3-6.7); Neutrophils Percent Auto 52.7 % (45.5-73.1); Platelet Count Result 171 k/mm3 (150-375); Red Blood Count 4.94 M/mm3 (4.2-5.4); Red Cell Distribution Width 15.3 % (11.5-14.5)
[2021-06-22 11:13] LABS: Alanine Aminotransferase 14 U/L (4-35); Albumin Level 4.1 g/dL (3.5-5.1); Alkaline Phosphatase 56 U/L (38-126); Anion Gap 7 mmol/L (8-16); Aspartate Amino Transferase 23 U/L (14-36); Bilirubin,Total 0.6 mg/dL (0.2-1.3); Blood Urea Nitrogen 15 mg/dL (7-17); Carbon Dioxide 28 mmol/L (22-30); Chloride 105 mmol/L (98-107); Estimated Glomerular Filt Rate 53; Glucose 107 mg/dL (65-110); Potassium 3.7 mmol/L (3.4-5.0); Sodium 140 mmol/L (137-145)
[2021-06-22 11:27] LABS: Hemoglobin A1C 5.5 % (<5.7)
== END 2021-06-22 10:28 | disposition home or self-care (01) ==
LOC: ANHLAB 10:35
PROVIDERS: PCP Nurse Practitioner; Visit Provider Nurse Practitioner
DX: F17.210 Nicotine dependence, cigarettes, uncomplicated (principal); R73.03 Prediabetes; Z13.29 Encounter for screening for other suspected endocrine disorder
CPT/HCPCS: 36415; 80053; 83036; 84443; 85025

== ENCOUNTER 2021-07-03 13:05 | Emergency (ER) | payer MEDICARE, SELFPAY ==
[2021-07-03 13:12] VITALS: BP 141/77; PULSE 113; RESP 24; TEMP 37.1; O2SAT 94
--- NOTE | 2021-07-03 13:49 | ED.EYEPROB ---
HPI - Eye Problem General Chief complaint: Eye Problems Stated complaint: red and itchy eyes Time Seen by Provider: 07/03/21 13:29 Source: patient and RN notes reviewed Mode of arrival: ambulatory Limitations: no limitations History of Present Illness HPI Narrative: Patient presents today with a 1 month history of redness, itching, watering to the bilateral eyes. She had initially started using some Visine drops without relief. She then saw her primary care nurse practitioner and was placed on some polymyxin/neomycin/hydrocortisone ointment. Patient states eyes have continued to worsen since starting on this ointment. chief complaint: eye redness Related Data Home Medications Medication Instructions Recorded Confirmed aspirin 81 mg tablet,delayed 81 mg PO DAILY 06/25/19 07/03/21 release Saccharomyces boulardii 250 mg 250 mg PO DAILY 01/22/20 07/03/21 capsule multivit with 1 tablet PO DAILY 01/22/20 07/03/21 [id number]-ED-lutein 8 mg iron-400 mcg-300 mcg tablet cholecalciferol (vitamin D3) 25 25 mcg PO DAILY 04/07/21 07/03/21 mcg (1,000 unit) capsule fluticasone propionate 50 1 spray INTRANASAL DAILY 04/07/21 07/03/21 mcg/actuation nasal spray,suspension [id number]-dzap-HC 3.2 applic EACH EYE TID 07/03/21 07/03/21 Allergies Allergy/AdvReac Type Severity Reaction Status Date / Time amoxicillin Allergy Mild yeast Verified 07/03/21 13:14 infection Penicillins Allergy Mild yeast Verified 07/03/21 13:14 infection Sulfa (Sulfonamide Allergy Mild rash Verified 07/03/21 13:14 Antibiotics) sulfanilamide Allergy Mild Rash Verified 07/03/21 13:14 codeine AdvReac Intermediate Insomnia Verified 07/03/21 13:14 Review of Systems Review of Systems: CONSTITUTIONAL: Denies body aches, fever, chills, or sweats. EYES: Denies visual changes. + Bilateral redness, itching, watering ENT: Denies rhinorrhea, congestion, sore throat, or otalgia. CARDIOVASCULAR: Denies chest pain, palpitations, or edema. RESPIRATORY: Denies cough or dyspnea. GASTROINTESTINAL: Denies abdominal pain, nausea, vomiting, or diarrhea. GENITOURINARY: Denies dysuria or hematuria. SKIN: Denies rash, itching, or wounds. MUSCULOSKELETAL: Denies back pain, joint pain, or myalgia. NEUROLOGIC: Denies headache, numbness, tingling, or weakness. PSYCH: Denies depression or anxiety. [facility] Past Medical History Medical History Anemia Atrial fibrillation Breast cancer Right breast, surgery 2005, radiation with radiation fibrosis CKD (chronic kidney disease) stage 3, GFR 30-59 ml/min COPD (chronic obstructive pulmonary disease) Fracture of vertebra due to osteoporosis Generalized osteoarthritis of multiple sites Hyperlipidemia Hypertension Inflammatory arthritis Insomnia Nicotine addiction VIVIANE (obstructive sleep apnea) Osteoporosis Other intervertebral disc degeneration, lumbar region Pain of ulnar side of wrist Rheumatoid arthritis Thyroid nodule Vitamin D deficiency Surgical History Surgical History H/O breast surgery H/O cataract extraction History of appendectomy History of cholecystectomy Family History Family History Father Family history of lymphoma Family history of malignant neoplasm of bone Mother Family history of coronary artery disease Family history of congestive heart failure Sibling Diabetes mellitus Other Carcinoma of colon Social History Social History Smoking status: Current every day smoker Second hand tobacco smoke exposure: Yes Smoking end date: 09/12/15 Alcohol intake: current Gender identity (if verbalized by the patient): Female Comments At time of signature, I have reviewed and agree with nursing past medical, surgical, soc
== END 2021-07-03 13:57 | disposition home or self-care (01) ==
PROVIDERS: Emergency Provider Nurse Practitioner; PCP Nurse Practitioner
DX: H10.13 Acute atopic conjunctivitis, bilateral (principal); F17.200 Nicotine dependence, unspecified, uncomplicated; I48.91 Unspecified atrial fibrillation; I13.10 Hypertensive heart and chronic kidney disease without heart failure, with stage 1 through stage 4 chronic kidney disease, or unspecified chronic kidney disease; N18.30 Chronic kidney disease, stage 3 unspecified; J44.9 Chronic obstructive pulmonary disease, unspecified; E78.5 Hyperlipidemia, unspecified; G47.33 Obstructive sleep apnea (adult) (pediatric); M81.0 Age-related osteoporosis without current pathological fracture; M06.9 Rheumatoid arthritis, unspecified; E55.9 Vitamin D deficiency, unspecified; Z85.3 Personal history of malignant neoplasm of breast
CPT/HCPCS: 99213; G0463